=== PATIENT | male | born 2000 | race Hispanic/Latino ===

== ENCOUNTER 2023-11-26 11:09 | Emergency (ER) | payer OTHER ==
[~2023-11-26] VITALS: Ht 177.8 cm; Wt 115.7 kg
[2023-11-26 11:13] VITALS: BP 133/82; PULSE 63; RESP 16
[2023-11-26] MEDS ORDERED: IBUPROFEN 800 MG TAB PO ONE (11:30)
[2023-11-26] MEDS ORDERED: IBUP-2077 PO (11:50)
== END 2023-11-26 12:22 | disposition home or self-care (01) ==
LOC: EDH 11:09
DX: M23.92 Unspecified internal derangement of left knee (principal); Z98.890 Other specified postprocedural states
CPT/HCPCS: 29505; 73562

== ENCOUNTER 2024-05-30 11:08 | Emergency (ER) | payer OTHER ==
[~2024-05-30] VITALS: Ht 177.8 cm; Wt 101.2 kg
[~2024-05-30 11:08] MED LIST: IBUP-2077 PO
[2024-05-30] MEDS: KETOROLAC 60 MG VIAL (30MG/ML) IM ONE (11:41)
[2024-05-30] MEDS: CYCLOBENZAPRINE HCL 10 MG TABLET PO ONE (11:41)
[2024-05-30] MEDS: SOLU-MEDROL 125MG VIAL IM ONE (11:41)
[2024-05-30] MEDS ORDERED: METH4TAB3 PO (12:19)
[2024-05-30] MEDS ORDERED: CYCL10TA16 PO (12:19)
[2024-05-30] MEDS: ACETAMINOPHEN WITH CODEINE 1 TAB TAB PO ONE (13:07)
[2024-05-30 13:08] VITALS: BP 136/67; PULSE 84; RESP 18; O2SAT 99
== END 2024-05-30 13:11 | disposition home or self-care (01) ==
LOC: EDH 11:08
DX: M54.40 Lumbago with sciatica, unspecified side (principal)
CPT/HCPCS: 99284; 72100; 96372 ×2; J2919; J1885

== ENCOUNTER 2024-06-02 12:01 | Emergency (ER) | payer OTHER ==
[~2024-06-02] VITALS: Ht 177.8 cm; Wt 99.8 kg
[~2024-06-02 12:01] MED LIST changes: +CYCL10TA16 PO; +METH4TAB3 PO
[2024-06-02 12:26] LABS: APPEARANCE,URINE CLEAR (CLEAR); BILIRUBIN,URINE NEGATIVE (NEGATIVE); COLOR,URINE YELLOW (YELLOW); GLUCOSE, URINE (UA) NEGATIVE (NEGATIVE); KETONES,URINE NEGATIVE (NEGATIVE); LEUKOCYTE ESTERASE ,URINE NEGATIVE Leu/uL (NEGATIVE); NITRATE,URINE NEGATIVE (NEGATIVE); PROTEIN,URINE NEGATIVE (NEGATIVE); UROBILINOGEN,URINE 0.2 mg/dL (0.2-1.0)
[2024-06-02 12:28] LABS: ADD UA MICROSCOPIC YES
[2024-06-02 12:35] LABS: AMPHET/METH SCREEN,URINE NEGATIVE (NEGATIVE); BARBITURATE SCREEN, URINE NEGATIVE (NEGATIVE); BENZODIAZEPINES SCREEN,URINE NEGATIVE (NEGATIVE); CANNABINOID SCREEN,URINE POSITIVE (NEGATIVE); COCAINE SCREEN,URINE NEGATIVE (NEGATIVE); OPIATE SCREEN,URINE NEGATIVE (NEGATIVE); PHENCYCLIDINE SCREEN,URINE NEGATIVE (NEGATIVE)
[2024-06-02 12:54] LABS: BASOPHILS # (AUTO) 0.03 K/uL (0.00-0.20); BASOPHILS % (AUTO) 0.4 % (0.0-5.0); EOSINOPHILS # (AUTO) 0.02 K/uL (0.00-0.70); EOSINOPHILS % (AUTO) 0.3 % (0.0-8.0); HEMATOCRIT 49.5 % (42-54); IMMATURE GRANULOCYTE ABSOLUTE 0.02 K/uL (0-1); LYMPHOCYTES # (AUTO) 1.8 K/uL (1.0-4.8); LYMPHOCYTES % (AUTO) 23.8 % (21.0-51.0); MEAN CORPUSCULAR HEMOGLOBIN 33.2 pg (27.0-33.0); MEAN CORPUSCULAR HGB CONC 34.5 g/dL (32.0-36.0); MEAN CORPUSCULAR VOLUME 96.1 fL (79-99); MONOCYTES # (AUTO) 0.7 K/uL (0.1-1.0); MONOCYTES % (AUTO) 8.8 % (3.0-13.0); NEUTROPHILS # (AUTO) 4.9 K/uL (1.8-7.7); NEUTROPHILS % (AUTO) 66.4 % (40.0-77.0); PLATELET COUNT (AUTO) 188 K/uL (130-400); RED BLOOD CELL COUNT(AUTO) 5.15 MIL/uL (4.50-6.20); RED CELL DISTRIBUTION WIDTH 12.7 % (11.0-15.5); WHITE BLOOD COUNT (AUTO) 7.4 K/uL (4.8-10.8)
[2024-06-02 13:05] LABS: MUCUS,URINE RARE LPF (None Seen); WBC,URINE 0-1 /HPF (0-1)
[2024-06-02 13:05] LABS: CARBON DIOXIDE 31 mmol/L (21-32); CHLORIDE 103 mmol/L (101-111); CREATININE 1.2 mg/dL (0.5-1.3); GLOMERULAR FILTR. RATE CALC 86 mL/min (>90); GLUCOSE,RANDOM 99 mg/dL (70-105); POTASSIUM 3.9 mmol/L (3.5-5.1); SODIUM SERUM 141 mmol/L (136-145); UREA NITROGEN, BLOOD 17 mg/dL (7-18)
[2024-06-02 13:10] LABS: ALANINE AMINOTRANSFERASE 26 U/L (12-78); ALBUMIN 4.2 g/dL (3.5-5.0); ALCOHOL, BLOOD < 3 mg/dL (0-10); ASPARTATE AMINOTRANSFERASE 11 U/L (10-37); TOTAL PROTEIN, SERUM 7.5 g/dL (6.0-8.3)
[2024-06-02 13:12] LABS: ACETAMINOPHEN < 1 mcg/mL (10-29); SALICYLATE < 2.8 mg/dL (2.8-20.0)
[2024-06-02 15:56] VITALS: BP 141/77; PULSE 84; RESP 17; O2SAT 99
== END 2024-06-02 15:57 | disposition home or self-care (01) ==
LOC: EDH 12:01
DX: F43.10 Post-traumatic stress disorder, unspecified (principal); F32.A Depression, unspecified; Z79.899 Other long term (current) drug therapy; Z98.890 Other specified postprocedural states
CPT/HCPCS: 99283; 80053; 80305; 85025; 36415; 81001; G0481

== ENCOUNTER 2024-08-28 20:13 | Emergency (ER) | payer OTHER ==
[~2024-08-28] VITALS: Ht 180.3 cm; Wt 99.8 kg
[2024-08-28] MEDS: ketOROlac 30MG VIAL (30MG/ML) IM ONE (20:52)
[2024-08-28 20:58] LABS: BASOPHILS # (AUTO) 0.04 K/uL (0.00-0.20); BASOPHILS % (AUTO) 0.4 % (0.0-5.0); EOSINOPHILS # (AUTO) 0.03 K/uL (0.00-0.70); EOSINOPHILS % (AUTO) 0.3 % (0.0-8.0); HEMATOCRIT 46.5 % (42-54); IMMATURE GRANULOCYTE ABSOLUTE 0.02 K/uL (0-1); LYMPHOCYTES # (AUTO) 1.5 K/uL (1.0-4.8); LYMPHOCYTES % (AUTO) 13.8 % (21.0-51.0); MEAN CORPUSCULAR HEMOGLOBIN 33.1 pg (27.0-33.0); MEAN CORPUSCULAR HGB CONC 35.3 g/dL (32.0-36.0); MEAN CORPUSCULAR VOLUME 93.9 fL (79-99); MONOCYTES # (AUTO) 0.9 K/uL (0.1-1.0); MONOCYTES % (AUTO) 7.9 % (3.0-13.0); NEUTROPHILS # (AUTO) 8.5 K/uL (1.8-7.7); NEUTROPHILS % (AUTO) 77.4 % (40.0-77.0); PLATELET COUNT (AUTO) 204 K/uL (130-400); RED BLOOD CELL COUNT(AUTO) 4.95 MIL/uL (4.50-6.20); WHITE BLOOD COUNT (AUTO) 10.9 K/uL (4.8-10.8)
[2024-08-28 21:11] LABS: CREATININE 1.5 mg/dL (0.5-1.3); POTASSIUM 3.3 mmol/L (3.5-5.1)
[2024-08-28] MEDS ORDERED: IOHEXOL 350 MG/ML 100ML INFUS..BTL IV ONE (21:19)
[2024-08-28 22:26] VITALS: BP 124/70; PULSE 80; RESP 19; TEMP 98.5; O2SAT 97
== END 2024-08-28 22:30 | disposition left against medical advice (07) ==
LOC: EDH 20:13
DX: S49.91XA Unspecified injury of right shoulder and upper arm, initial encounter (principal); X50.0XXA Overexertion from strenuous movement or load, initial encounter; Y93.89 Activity, other specified; Y92.89 Other specified places as the place of occurrence of the external cause; Y99.8 Other external cause status
CPT/HCPCS: 99285; 73202; 80048; 85025; 36415; 96372; J1885; Q9967

== ENCOUNTER 2024-10-24 03:19 | Emergency (ER) | payer OTHER ==
[~2024-10-24] VITALS: Ht 177.8 cm; Wt 101.2 kg
[2024-10-24 04:16] LABS: BASOPHILS # (AUTO) 0.04 K/uL (0.00-0.20); BASOPHILS % (AUTO) 0.4 % (0.0-5.0); EOSINOPHILS # (AUTO) 0.05 K/uL (0.00-0.70); EOSINOPHILS % (AUTO) 0.5 % (0.0-8.0); HEMATOCRIT 45.2 % (42-54); IMMATURE GRANULOCYTE ABSOLUTE 0.05 K/uL (0-1); LYMPHOCYTES # (AUTO) 2.4 K/uL (1.0-4.8); LYMPHOCYTES % (AUTO) 23.6 % (21.0-51.0); MEAN CORPUSCULAR HEMOGLOBIN 33.6 pg (27.0-33.0); MEAN CORPUSCULAR HGB CONC 34.7 g/dL (32.0-36.0); MEAN CORPUSCULAR VOLUME 96.8 fL (79-99); MONOCYTES # (AUTO) 0.8 K/uL (0.1-1.0); MONOCYTES % (AUTO) 8.1 % (3.0-13.0); NEUTROPHILS # (AUTO) 6.9 K/uL (1.8-7.7); NEUTROPHILS % (AUTO) 66.9 % (40.0-77.0); PLATELET COUNT (AUTO) 203 K/uL (130-400); RED BLOOD CELL COUNT(AUTO) 4.67 MIL/uL (4.50-6.20); RED CELL DISTRIBUTION WIDTH 12.1 % (11.0-15.5); WHITE BLOOD COUNT (AUTO) 10.3 K/uL (4.8-10.8)
[2024-10-24 04:24] LABS: CREATININE 1.4 mg/dL (0.5-1.3); POTASSIUM 4.1 mmol/L (3.5-5.1)
[2024-10-24 05:08] LABS: CARBON DIOXIDE 27 mmol/L (21-32); CHLORIDE 106 mmol/L (101-111); CREATININE 1.3 mg/dL (0.5-1.3); GLOMERULAR FILTR. RATE CALC 78 mL/min (>90); GLUCOSE,RANDOM 85 mg/dL (70-105); POTASSIUM 3.9 mmol/L (3.5-5.1); SODIUM SERUM 137 mmol/L (136-145); UREA NITROGEN, BLOOD 19 mg/dL (7-18)
[2024-10-24 05:09] LABS: ALCOHOL, BLOOD < 3 mg/dL (0-10)
--- NOTE | 2024-10-24 05:29 | EKG ---
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
--- NOTE | 2024-10-24 05:29 | EKG ---
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
[2024-10-24 05:42] LABS: APPEARANCE,URINE CLEAR (CLEAR); BILIRUBIN,URINE NEGATIVE (NEGATIVE); COLOR,URINE LIGHT-YELLOW (YELLOW); GLUCOSE, URINE (UA) NEGATIVE (NEGATIVE); KETONES,URINE NEGATIVE (NEGATIVE); LEUKOCYTE ESTERASE ,URINE NEGATIVE Leu/uL (NEGATIVE); NITRATE,URINE NEGATIVE (NEGATIVE); OCCULT BLOOD,URINE NEGATIVE (NEGATIVE); PROTEIN,URINE 10 mg/dL (NEGATIVE); UROBILINOGEN,URINE 0.2 mg/dL (0.2-1.0)
[2024-10-24] MEDS: 0.9%NACL 1000ML 729 ML IV ONE (05:47)
[2024-10-24 05:49] LABS: AMPHET/METH SCREEN,URINE NEGATIVE (NEGATIVE); BARBITURATE SCREEN, URINE NEGATIVE (NEGATIVE); BENZODIAZEPINES SCREEN,URINE NEGATIVE (NEGATIVE); CANNABINOID SCREEN,URINE POSITIVE (NEGATIVE); COCAINE SCREEN,URINE NEGATIVE (NEGATIVE); OPIATE SCREEN,URINE NEGATIVE (NEGATIVE); PHENCYCLIDINE SCREEN,URINE NEGATIVE (NEGATIVE)
[2024-10-24 05:52] LABS: ADD UA MICROSCOPIC YES
[2024-10-24 05:54] LABS: MUCUS,URINE RARE LPF (None Seen); RBC,URINE 0-1 /HPF (0-1); WBC,URINE 0-1 /HPF (0-1)
[2024-10-24 07:27] VITALS: BP 98/60; PULSE 67; RESP 18; TEMP 98.8; O2SAT 97
--- NOTE | 2024-10-24 07:37 | ERN ---
ED Note History of Present Illness Stated Complaint: C/O SYNCOPY, LACERATION TO FACE; SWELLING TO FACE Chief Complaint: Syncope Time Seen by MD: 03:57 Allergies: Coded Allergies: No Known Drug Allergies (Unverified Allergy, Unknown, 05/30/24) Home Meds Active Scripts Ibuprofen (Ibuprofen 800 mg Tab) 800 Mg Tab, 800 MG PO Q8H PRN for fever or pain, #30 TAB 0 Refills Prov:BRIANA BARRIOS CLAIMS SUPERVISOR 05/30/24 Cyclobenzaprine HCl (Flexeril) 10 Mg Tab, 10 MG PO TID for muscle sstiffness, #14 TAB 0 Refills Prov:BRIANA BARRIOS CLAIMS SUPERVISOR 05/30/24 Methylprednisolone (Medrol) 4 Mg Tab.ds.pk, 4 MG PO AD, #1 UDCAP Prov:BRIANA BARRIOS CLAIMS SUPERVISOR 05/30/24 Ibuprofen (Ibuprofen 800 mg Tab) 800 Mg Tab, 800 MG PO Q8H PRN for fever or pain, #30 TAB 0 Refills Prov:BRIANA BARRIOS CLAIMS SUPERVISOR 11/26/23 Past Medical History Dictation 24-year-old male with no significant past medical history who presents with multiple syncopal falls and head strike. Patient states that he is in the room when he suddenly lost consciousness again. Striking his head successively Past Medical History: No Pertinent History Additional Past Medical Hx: PTSD Surgical History: Other Surgical History Other: BILATERAL KNEE SX Review of System Dictation see hpi Initial Vital Sign VS Vital Signs Date Time Temp Pulse Resp B/P (MAP) Pulse Ox O2 Delivery O2 Flow Rate FiO2 10/24/24 03:22 99.0 83 20 118/64 97 Room Air 10/24/24 03:36 0 21 Physical Exam Dictation Facial contusion, atraumatic scalp, patent airway, ambulatory, acute weak appearing Results (Laboratory/Radiology) Laboratory/Radiology Laboratory Tests Test 10/24/24 03:38 10/24/24 03:54 10/24/24 04:50 10/24/24 05:15 Whole Blood Glucose 113 MG/DL (70-110) H White Blood Count 10.3 K/uL (4.8-10.8) Red Blood Count 4.67 MIL/uL (4.50-6.20) Hemoglobin 15.7 g/dL (14.0-18.0) Hematocrit 45.2 % (42-54) Mean Corpuscular Volume 96.8 fL (79-99) Mean Corpuscular Hemoglobin 33.6 pg (27.0-33.0) H Mean Corpuscular Hemoglobin Concent 34.7 g/dL (32.0-36.0) Red Cell Distribution Width 12.1 % (11.0-15.5) Platelet Count 203 K/uL (130-400) Mean Platelet Volume 9.5 fL (7.5-10.5) Immature Granulocyte % (Auto) 0.5 % (0-1) Neutrophils (%) (Auto) 66.9 % (40.0-77.0) Lymphocytes (%) (Auto) 23.6 % (21.0-51.0) Monocytes (%) (Auto) 8.1 % (3.0-13.0) Eosinophils (%) (Auto) 0.5 % (0.0-8.0) Basophils (%) (Auto) 0.4 % (0.0-5.0) Neutrophils # (Auto) 6.9 K/uL (1.8-7.7) Lymphocytes # (Auto) 2.4 K/uL (1.0-4.8) Monocytes # (Auto) 0.8 K/uL (0.1-1.0) Eosinophils # (Auto) 0.05 K/uL (0.00-0.70) Basophils # (Auto) 0.04 K/uL (0.00-0.20) Absolute Immature Granulocyte (auto 0.05 K/uL (0-1) Nucleated Red Blood Cells 0.0 % (0.0-0.19) Sodium Level 143 mmol/L (136-145) 137 mmol/L (136-145) Potassium Level 4.1 mmol/L (3.5-5.1) 3.9 mmol/L (3.5-5.1) Chloride Level 107 mmol/L (101-111) 106 mmol/L (101-111) Carbon Dioxide Level 29 mmol/L (21-32) 27 mmol/L (21-32) Blood Urea Nitrogen 18 mg/dL (7-18) 19 mg/dL (7-18) H Creatinine 1.4 mg/dL (0.5-1.3) H 1.3 mg/dL (0.5-1.3) Glomerular Filtration Rate Calc 71 mL/min (>90) 78 mL/min (>90) Random Glucose 90 mg/dL (70-105) 85 mg/dL (70-105) Total Calcium 8.8 mg/dL (8.5-10.1) 8.7 mg/dL (8.5-10.1) Troponin I High Sensitivity 4 ng/L (4-75) 4 ng/L (4-75) B-Type Natriuretic Peptide 6 pg/mL (0-100) Serum Alcohol < 3 mg/dL (0-10) Urine Color LIGHT-YELLOW (YELLOW) Urine Appearance CLEAR (CLEAR) Urine pH 6.0 (5.0-8.0) Urine Specific [place] 1.016 (1.001-1.031) Urine Protein 10 mg/dL (NEGATIVE) H Urine Glucose (UA) NEGATIVE mg/dL (NEGATIVE) Urine Ketones NEGATIVE mg/dL (NEGATIVE) Urine Occult Blood NEGATIVE (NEGATIVE) Urine Nitrate NEGATIVE (NEGATIVE) Urine Bilirubin NEGATIVE mg/dL (NEGATIVE) Urine Urobilinogen 0.2 mg/dL (0.2-1.0) Urine Leukocyte Esterase NEGATIVE Zack/uL Urine RBC 0-1 /HPF (0-1) Urine WBC 0-1 /HPF (0-1) Urine Bacteria None /HPF (None Seen) Urine Opiates Screen NEGATIVE (NEGATIVE) Urine Barbiturates Screen NEGATIVE (NEGATIVE) Urine Phencyclidine Screen NEGATIVE (NEGATIVE) Urine Amphetamines Screen NEGATIVE (NEGATIVE) Urine Benzodiazepines Screen NEGATIVE (NEGATIVE) Urine Cocaine Screen NEGATIVE (NEGATIVE) Urine Marijuana (THC) Screen POSITIVE (NEGATIVE) H ED Course ED Course Orders Procedure Category Date Status Time Ct Head/Brain W/O CT 10/24/24 Taken Contrast 03:45 Ct Cervical Spine W/O CT 10/24/24 Taken Contrast 03:45 Ct Maxillofacial W/O CT 10/24/24 Taken Contrast 03:45 Cbc With Differential LAB 10/24/24 Complete 03:45 Basic Metabolic Panel LAB 10/24/24 Complete 03:45 Troponin I High LAB 10/24/24 Complete Sensitivity 03:45 12 Lead Ekg Tracing- EKG 10/24/24 Complete Technical 03:45 B-Type Natriuretic LAB 10/24/24 Complete Peptide 04:34 Chest 1vw RAD 10/24/24 Taken 04:34 12 Lead Ekg Tracing- EKG 10/24/24 Complete Technical 04:34 Troponin I High LAB 10/24/24 Complete Sensitivity 04:34 Urinalysis Profile LAB 10/24/24 Complete 04:34 Bedside Troponin-I LAB.ER 10/24/24 In Process (Poc) 04:34 Basic Metabolic Panel LAB 10/24/24 Complete 04:34 Drug Screen Urine LAB 10/24/24 Complete 04:34 Alcohol, Blood LAB 10/24/24 Complete 04:34 0.9%Nacl 1000ml (Ns PHA 10/24/24 In Process 1000ml) 06:00 Current Medications Medications (Trade) Dose Ordered Sig/Jennifer Route PRN Reason Start Time Stop Time Status Last Admin Dose Admin Sodium Chloride 729 ml @ 243 mls/hr ONCE ONCE IV 10/24/24 06:00 10/24/24 08:59 10/24/24 05:47 Vital Signs Date Time Temp Pulse Resp B/P (MAP) Pulse Ox O2 Delivery O2 Flow Rate FiO2 10/24/24 07:27 98.8 67 18 98/60 97 Room Air* 0 10/24/24 06:23 74 18 111/59 97 Room Air* 0 21 10/24/24 03:36 98.8 81 18 125/65 99 Room Air* 0 21 10/24/24 03:22 99.0 83 20 118/64 97 Room Air Medical Decision Making MDM ddx: Cardiac syncope versus intoxication versus G[place]EN[place] versus electrolyte derangement All images and diagnosed interpreted by me\ EK10/24/2024; 0454 Normal sinus rhythm 80 beats per minute, normal axis, right bundle-branch block, nonspecific ST-T changes EKG shows no acute ischemic changes. Troponin within normal limits. No interval abnormalities. Low clinical suspicion for cardiac syncope. Patient's UDS positive for cannabinoids. Possible intoxication. The which was within normal limits. Electrolytes derangement. Patient's creatinine is significantly elevated. Possible G[place]EN[place]. Patient given fluid bolus. reevaluatiion: Upon re-evaluation, patient states he shows improved after fluids. Discussed the ed workup per patient patient's mother who is at bedside. Recommend close primary care follow-up. Return precautions given. By Helder Jamison'[place] prior to discharge. DX & DISP Disposition: Discharge Decision to Admit Date: Oct 24, 2024 Decision to Admit Time: 07:36 Departure Impression: Primary Impression: GARDENIA (acute kidney injury) Additional Impression: Syncope Critical Time: 30 minutes Condition: Stable Additional Instructions: Please follow up with primary care physician at next available appointment. Please return emergency department immediately if symptoms recur, he feels some weakness, nausea, vomiting, sweating, change in mental status Referrals: SELF,REFERRAL (PCP) Time of Disposition: 07:37 MANISHA WOODY DO Oct 24, 2024 07:37
--- NOTE | 2024-10-24 08:24 | HMCIMG ---
Exam Type: CT HEAD/BRAIN W/O CONTRAST Clinical Information: S/P FALL Comparison: None CT Dose Index (CTDI): 57.33 mGy Dose Length Product (DLP): 956.79 total mGy-cm Findings: The examination is unremarkable. Piper-white matter junction is preserved. No intra or extra axial lesions or fluid collections are seen. Specifically, piper and white matter are normal in signal characteristics with normal caliber of ventricles and periventricular cisterns with no evidence of intra or or extra-axial hemorrhage, lacunar infarct, or major territorial infarct, mass, or other abnormality. There are no infarcts. There are no hemorrhages. Periventricular white matter locations are preserved. The orbital contents and structures of the posterior fossa are intact. Impression: Normal CT of the head. This study was performed using dose reduction techniques to include automated exposure control and/or adjustment of the mA and/or kV according to patient size.
--- NOTE | 2024-10-24 08:56 | HMCIMG ---
CT MAXILLOFACIAL W/O CONTRAST Indication: S/P FALL Technique: Multiple thin section axial images were performed through the face and paranasal sinuses. Coronal reconstructions were performed in soft tissue and bone windows, as well as sagittal reconstructions. CT Dose Index (CTDI): 22.11 mGy Dose Length Product (DLP): 450.8 total mGy Findings: Paranasal sinuses are unremarkable. There is no evidence of facial fracture. Mild right cheek hematoma without underlying fractures. Visualized intracranial contents are unremarkable. Impression: No acute abnormality of the face. This study was performed using dose reduction techniques to include automated exposure control and/or adjustment of the mA and/or kV according to patient size.
--- NOTE | 2024-10-24 08:56 | HMCIMG ---
Exam Type: CT cervical spine without contrast Clinical Information: S/P FALL Comparison: None Technique: Spiral axial images were performed from the base of the skull down to the thoracic vertebral bodies. Both sagittal and coronal reconstructions were performed. CT Dose Index (CTDI): 12.85 mGy Dose Length Product (DLP): 282.6 total Findings: There is straightening of the spine consistent with spasm. There are no fractures. No facet hypertrophy. The prevertebral soft tissues are normal. IMPRESSION: Cervical spasm. No fractures. This study was performed using dose reduction techniques to include automated exposure control and/or adjustment of the mA and/or kV according to patient size.
--- NOTE | 2024-10-24 09:10 | HMCIMG ---
Exam Type: CHEST 1VW Clinical Information: cp Comparison: None Findings: The lungs are clear of infiltrates. The heart is normal in size. The bony and soft tissue structures of the chest are unremarkable. Impression: Clear lungs.
== END 2024-10-24 07:53 | disposition home or self-care (01) ==
LOC: EDH 03:19
DX: S00.83XA Contusion of other part of head, initial encounter (principal); R55 Syncope and collapse; N17.9 Acute kidney failure, unspecified; X58.XXXA Exposure to other specified factors, initial encounter; Y93.89 Activity, other specified; Y92.89 Other specified places as the place of occurrence of the external cause; Y99.8 Other external cause status
CPT/HCPCS: 99285; 70450; 71045; 84484 ×2; 80048 ×2; 83880; 80305; 85025; 82948; 81001; 36415; 72125; 70486; 93005 ×2; J7030